=== PATIENT | male | born 1965 | race Hispanic/Latino ===

== ENCOUNTER → 2020-09-28 | Outpatient (CLI) | payer MEDICARE, OTHER | LOC: RAD 11:37 | PROVIDERS: ATTEND Internal Medicine | DX: S99.912A Unspecified injury of left ankle, initial encounter (principal) ==

== ENCOUNTER → 2021-05-08 | Outpatient (CLI) | payer MEDICARE | LOC: RAD 09:27 | PROVIDERS: ATTEND Internal Medicine | DX: M79.671 Pain in right foot (principal); M25.562 Pain in left knee; Z91.81 History of falling ==